=== PATIENT | male | born 1950 | race Caucasian/White ===

== ENCOUNTER 2016-04-14 | Outpatient (CLI) | payer MEDICARE, OTHER | END 2016-04-14 12:22 | disposition critical access hospital (66) | DX: R05 Cough (principal) | CPT/HCPCS: A0425; A0429 ==

== ENCOUNTER 2016-04-14 12:42 | Emergency (ER) | payer MEDICARE, OTHER | END 2016-04-14 14:09 | disposition home or self-care (01) | DX: C14.0 Malignant neoplasm of pharynx, unspecified (principal); F17.200 Nicotine dependence, unspecified, uncomplicated; J43.9 Emphysema, unspecified; R59.0 Localized enlarged lymph nodes; J35.1 Hypertrophy of tonsils; I10 Essential (primary) hypertension; E11.9 Type 2 diabetes mellitus without complications ==